=== PATIENT | female | born 1985 ===

== ENCOUNTER 2018-03-13 08:30 | Emergency (ER) | payer OTHER, BC ==
[~2018-03-13] VITALS: Ht 167.6 cm; Wt 127.0 kg
[2018-03-13] MEDS ORDERED: Robaxin500 MG PO (08:55)
[2018-03-13] MEDS ORDERED: IBUP600 PO (08:55)
== END 2018-03-13 09:17 | disposition home or self-care (01) ==
LOC: ER 08:30
DX: S16.1XXA Strain of muscle, fascia and tendon at neck level, initial encounter (principal); Z88.0 Allergy status to penicillin; V43.52XA Car driver injured in collision with other type car in traffic accident, initial encounter
CPT/HCPCS: 99282